=== PATIENT | female | born 1985 | race Caucasian/White ===

== ENCOUNTER → 2025-03-24 | Day surgery (SDC) | payer OTHER ==
[~2025-03-24] MED LIST: BERBERINE500 MG PO; GLUCAGON FOR INJ 1 MG VIAL ONE; MAGNESIUM PO; MIDAZOLAM HCL 2 MG/2 ML VIAL ONE; NAC600 MG PO; PROPOFOL IV EMULSION 50 ML IV ONE; ZYRTEC10 MG PO
[2025-03-24] MEDS: LACTATED RINGER'S 1,000 ML ONE (14:54)
[2025-03-24 16:35] VITALS: BP 113/83; PULSE 75; RESP 16; TEMP 97.9; O2SAT 98
== END | disposition home or self-care (01) ==
LOC: OR 05:00
PROVIDERS: ATTEND Internal Medicine Gastroenterology
DX: Z12.11 Encounter for screening for malignant neoplasm of colon (principal); D12.4 Benign neoplasm of descending colon; K31.7 Polyp of stomach and duodenum; K29.50 Unspecified chronic gastritis without bleeding; K21.9 Gastro-esophageal reflux disease without esophagitis; K44.9 Diaphragmatic hernia without obstruction or gangrene; K64.1 Second degree hemorrhoids; E78.5 Hyperlipidemia, unspecified
CPT/HCPCS: 43239; 43251; 45385; 81025; J1610; J2250; J2704; J7121; 45378